=== PATIENT | male | born 1985 | race American Indian/Alaskan Native ===

== ENCOUNTER 2021-04-15 06:31 | Emergency (ER) | payer SELFPAY ==
--- NOTE | 2021-04-15 08:02 | Emergency Department Report ---
- General Chief complaint: Skin/Abscess/Foreign Body Stated complaint: BOIL ON BUTT Time Seen by Provider: 04/15/21 07:56 Source: patient Mode of arrival: Ambulatory Limitations: No Limitations - History of Present Illness Initial comments: 35-year-old -[place] male presents to the emergency room complaining of bowl to his buttocks x1 week. Patient states he has a history of an abscess before. States that it is painful. He has not taken anything for it. This is the first time patient has been seen for this. Denies any fever chills no nausea no vomiting no drainage. States pain is better if he stays off his buttocks. Denies any known drug allergies currently takes no meds on a daily basis. MD complaint: abscess/boil Onset/Timin -: week(s) Location: buttocks Severity: moderate Severity scale (0 -10): 5 Quality: aching, sharp Consistency: intermittent Improves with: none Worsens with: palpation Context: none Associated symptoms: denies other symptoms - Related Data Previous Rx's Medication Instructions Recorded Last Taken Type Amoxicillin [Trimox CAP] 500 mg PO Q8H #30 capsule 09/16/14 Unknown Rx HYDROcodone/APAP 10-325 [Rogers 1 each PO Q6HR PRN #16 tablet 09/16/14 Unknown Rx 10/325] Ibuprofen [Motrin 800 MG tab] 800 mg PO Q8HR PRN #21 tablet 04/15/21 Unknown Rx cephALEXin [Keflex] 500 mg PO Q8HR #30 cap 04/15/21 Unknown Rx Allergies Allergy/AdvReac Type Severity Reaction Status Date / Time No Known Allergies Allergy Verified 09/16/14 02:36 Abscess Boil HPI - HPI Chief Complaint: Skin/Abscess/Foreign Body Stated Complaint: BOIL ON BUTT Time Seen by Provider: 04/15/21 07:56 Home Medications: Previous Rx's Medication Instructions Recorded Last Taken Type Amoxicillin [Trimox CAP] 500 mg PO Q8H #30 capsule 09/16/14 Unknown Rx HYDROcodone/APAP 10-325 [Rogers 1 each PO Q6HR PRN #16 tablet 09/16/14 Unknown Rx 10/325] Ibuprofen [Motrin 800 MG tab] 800 mg PO Q8HR PRN #21 tablet 04/15/21 Unknown Rx cephALEXin [Keflex] 500 mg PO Q8HR #30 cap 04/15/21 Unknown Rx Allergies/Adverse Reactions: Allergies Allergy/AdvReac Type Severity Reaction Status Date / Time No Known Allergies Allergy Verified 09/16/14 02:36 ED Review of Systems ROS: Stated complaint: BOIL ON BUTT Other details as noted in HPI Comment: All other systems reviewed and negative ED Past Medical Hx - Social History Smoking Status: Current Every Day Smoker Substance Use Type: None - Medications Home Medications: Home Medications Medication Instructions Recorded Confirmed Last Taken Type Amoxicillin [Trimox CAP] 500 mg PO Q8H #30 capsule 09/16/14 Unknown Rx HYDROcodone/APAP 10-325 [Rogers 1 each PO Q6HR PRN #16 tablet 09/16/14 Unknown Rx 10/325] Ibuprofen [Motrin 800 MG tab] 800 mg PO Q8HR PRN #21 tablet 04/15/21 Unknown Rx cephALEXin [Keflex] 500 mg PO Q8HR #30 cap 04/15/21 Unknown Rx ED Physical Exam - General Limitations: No Limitations ED Course Vital Signs 04/15/21 07:45 Temperature 98.8 F Pulse Rate 60 Respiratory 20 Rate Blood Pressure 106/61 [Right] O2 Sat by Pulse 100 Oximetry ED Medical Decision Making - Medical Decision Making 35-year-old -[place] male presents to the emergency room complaining of bowl to his buttocks x1 week. Patient states he has a history of an abscess before. States that it is painful. He has not taken anything for it. This is the first time patient has been seen for this. Denies any fever chills no nausea no vomiting no drainage. States pain is better if he stays off his buttocks. Denies any known drug allergies currently takes no meds on a daily basis. Patient has had left gluteal abscess that is mildly indurated not fluctuant nonerythematous minimal tenderness. Patient replaced on Keflex ibuprofen and instructed to follow-up with her primary care provider. Critical care attestation.: If time is entered above; I have spent that time in minutes in the direct care of this critically ill patient, excluding procedure time. ED Disposition Clinical Impression: Abscess, gluteal cleft Disposition: 01 HOME / SELF CARE / HOMELESS Is pt being admited?: No Does the pt Need Aspirin: No Condition: Stable Instructions: Skin Abscess, [id number] Additional Instructions: Complete antibiotics as prescribed. Pain medication as needed. Is very important you follow-up with the primary care provider. Sure to increase your fluid intake advance your diet as tolerated. Prescriptions: cephALEXin [Keflex] 500 mg PO Q8HR #30 cap Ibuprofen [Motrin 800 MG tab] 800 mg PO Q8HR PRN #21 tablet PRN Reason: Pain , Severe (7-10) Referrals: NATE SAHNI MD [Staff Physician] - 3-5 Days Forms: Work/School Release Form(ED) Time of Disposition: 08:02
[2021-04-15 08:27] VITALS: BP 110/70
== END 2021-04-15 08:25 | disposition home or self-care (01) ==
LOC: ED 06:31
DX: L02.31 Cutaneous abscess of buttock (principal); F17.200 Nicotine dependence, unspecified, uncomplicated; Z79.899 Other long term (current) drug therapy
CPT/HCPCS: 99282